=== PATIENT | female | born 1960 | race African-American/Black ===

== ENCOUNTER 2017-01-26 16:50 | Emergency (ER) | payer MEDICAID ==
[~2017-01-26] VITALS: Ht 162.6 cm; Wt 158.8 kg
[~2017-01-26 16:50] MED LIST: CARI-277 PO; DOCU-137; FERR324T11; IBU100LQ PO; LISI10TA6; MEDR10TA9; NOR5T PO; TRIA37.575; WARF5TAB PO
[2017-01-26 16:59] VITALS: BP 182/102
[2017-01-26] MEDS ORDERED: traMADol HCL 50 MG TAB PO ONE (17:15)
== END 2017-01-26 18:00 | disposition home or self-care (01) ==
LOC: ER 16:57
DX: M25.562 Pain in left knee (principal); M25.561 Pain in right knee; I11.0 Hypertensive heart disease with heart failure; I50.9 Heart failure, unspecified; E78.5 Hyperlipidemia, unspecified; J44.9 Chronic obstructive pulmonary disease, unspecified; M19.90 Unspecified osteoarthritis, unspecified site; I25.10 Atherosclerotic heart disease of native coronary artery without angina pectoris; Z87.11 Personal history of peptic ulcer disease; Z79.01 Long term (current) use of anticoagulants; Z88.1 Allergy status to other antibiotic agents; Z88.6 Allergy status to analgesic agent; Z87.440 Personal history of urinary (tract) infections

== ENCOUNTER 2017-04-16 21:04 | Emergency (ER) | payer MEDICAID ==
[~2017-04-16] VITALS: Ht 162.6 cm; Wt 136.1 kg
[~2017-04-16 21:04] MED LIST changes: +HYDR-4663 PO; -NOR5T PO
[2017-04-16 22:00] LABS: Basophils # (auto) 0 uL; Basophils % (auto) 0.5 % (0.0-2.0); CONDITION Y; Eosinophils # (auto) 0.2 uL; Hematocrit 31.4 % (36.0-46.0); Hemoglobin 10.3 g/dL (12.2-16.2); Lymphocytes # (auto) 0.9 uL; Lymphocytes % (auto) 14.1 % (10.0-50.0); Mean Corpuscular Hemoglobin 27.6 pg (28.0-32.0); Mean Corpuscular Hgb Conc. 32.8 g/dL (32.0-36.0); Mean Corpuscular Volume 83.9 fL (80.0-100.0); Mean Platelet Volume 7.4 fL (7.4-10.4); Monocytes # (auto) 0.6 uL; Neutrophils # (auto) 4.7 uL; Neutrophils % (auto) 72.4 % (37.0-80.0); Platelet Count (auto) 285 10^3/uL (140-450); Red Cell Distribution Width 18.5 % (11.6-16.0); White Blood Cell 6.4 10^3/uL (4.4-10.8)
[2017-04-16 22:26] LABS: INR 1.02 (0.9-1.15); Partial Thromboplastin Time 33.4 sec (22.64-33.71); Prothrombin Time 11.1 sec (9.37-12.3)
[2017-04-16 22:28] LABS: B-Type Natriuretic Peptide 215.48 pg/mL (0-100)
[2017-04-16 22:32] LABS: Temperature: 23.3 C (20.0-25.0)
[2017-04-16 22:33] LABS: Albumin 3.2 g/dL (3.4-5.0); Alkaline Phosphatase 75 U/L (45-117); Anion Gap 5 (5-15); Aspartate Aminotransferase 10 U/L (15-37); BUN/Creatinine Ratio 37.5; Bilirubin, Total 0.3 mg/dL (0.2-1.0); Blood Urea Nitrogen 21 mg/dL (7-18); Carbon Dioxide 29 mmol/L (21-32); Chloride 104 mmol/L (98-107); GFR African American 145 mL/min; GFR Non-African American 119 mL/min; Glucose 85 mg/dL (74-106); Magnesium 2.5 mg/dL (1.6-2.6); Potassium 3.9 mmol/L (3.5-5.1); Sodium 138 mmol/L (136-145)
[2017-04-17] MEDS ORDERED: ONDANSETRON HCL 4 MG/2 ML VIAL IV ONE (03:15)
[2017-04-17] MEDS ORDERED: MORPHINE SULFATE 4 MG/ML SYRG IV ONE (03:15)
[2017-04-17 03:27] LABS: Urine Bilirubin Negative (Negative); Urine Blood TRACE /uL (Negative); Urine Color Yellow (Yellow); Urine Glucose Normal (Normal); Urine Ketone Negative (Negative); Urine Nitrite Negative (Negative); Urine RBC 1 /hpf (0 - 4); Urine Urobilinogen Normal (Negative)
[2017-04-17] MEDS ORDERED: KETOROLAC TROMETH 30 MG/ML 1ML VIAL IV ONE (04:30)
[2017-04-17 05:18] VITALS: BP 114/64
[2017-04-17] MEDS ORDERED: FUROSEMIDE 20 MG/2 ML VIAL IV ONE (06:00)
== END 2017-04-17 06:00 | disposition home or self-care (01) ==
LOC: ER 21:12
DX: I11.0 Hypertensive heart disease with heart failure (principal); I50.9 Heart failure, unspecified; M25.522 Pain in left elbow; M25.521 Pain in right elbow; J44.9 Chronic obstructive pulmonary disease, unspecified; M79.89 Other specified soft tissue disorders; I25.10 Atherosclerotic heart disease of native coronary artery without angina pectoris; Z90.710 Acquired absence of both cervix and uterus; Z90.89 Acquired absence of other organs
CPT/HCPCS: 36415; 51702; 71010; 80053; 81001; 83690; 83735; 83880; 84484; 85025; 85610; 85730; 93005; 96374; 96375; 99285; J1885; J2270; J2405

== ENCOUNTER 2017-06-16 15:04 | Emergency (ER) | payer MEDICAID ==
[~2017-06-16] VITALS: Ht 162.6 cm; Wt 145.1 kg
[2017-06-16 15:38] VITALS: BP 120/97
== END 2017-06-16 20:00 | disposition left against medical advice (07) ==
LOC: ER 15:04 → EDBD 15:04 → ER 20:00
DX: M25.512 Pain in left shoulder (principal); M25.511 Pain in right shoulder; M25.562 Pain in left knee; M25.561 Pain in right knee; Z53.21 Procedure and treatment not carried out due to patient leaving prior to being seen by health care provider

== ENCOUNTER 2019-01-08 20:59 | Inpatient (IN) | payer MEDICAID | END 2019-01-23 20:48 | LOC: TELE 01-09 00:49 → ICU WEST 01-09 03:08 → ER 20:59 | PROC: 5A1955Z Respiratory Ventilation, Greater than 96 Consecutive Hours (ICD-10-PCS; principal; ~2019-01-08) | PROC: 0BH17EZ Insertion of Endotracheal Airway into Trachea, Via Natural or Artificial Opening (ICD-10-PCS; ~2019-01-08) | DX: I13.0 Hypertensive heart and chronic kidney disease with heart failure and stage 1 through stage 4 chronic kidney disease, or unspecified chronic kidney disease (principal); J96.21 Acute and chronic respiratory failure with hypoxia; J18.9 Pneumonia, unspecified organism; N17.9 Acute kidney failure, unspecified; J44.1 Chronic obstructive pulmonary disease with (acute) exacerbation; I50.33 Acute on chronic diastolic (congestive) heart failure; E66.01 Morbid (severe) obesity due to excess calories; R06.03 Acute respiratory distress; N18.9 Chronic kidney disease, unspecified; D64.9 Anemia, unspecified; E78.5 Hyperlipidemia, unspecified; K27.9 Peptic ulcer, site unspecified, unspecified as acute or chronic, without hemorrhage or perforation; J44.0 Chronic obstructive pulmonary disease with (acute) lower respiratory infection; Z68.44 Body mass index [BMI] 60.0-69.9, adult ==